=== PATIENT | male | born 1990 | race Caucasian/White ===

== ENCOUNTER 2017-05-12 22:34 | Emergency (ER) | payer BC ==
[~2017-05-12] VITALS: Ht 177.8 cm; Wt 72.6 kg
[2017-05-12 22:34] VITALS: BP 145/78
[2017-05-12] MEDS ORDERED: MORPHINE SULFATE INJ 4 MG/ML DISP.SYRIN ONE (22:48)
[2017-05-12] MEDS ORDERED: ONDANSETRON 4 MG TAB.RAPDIS ONE (22:49)
[2017-05-12] MEDS ORDERED: MORPHINE SULFATE INJ 2 MG/ML DISP.SYRIN IM ONE (23:00)
[2017-05-12] MEDS ORDERED: ONDANSETRON 4 MG TAB.RAPDIS PO ONE (23:00)
[2017-05-12] MEDS ORDERED: TDAP [DIPH/PERTUSSIS/TET] 0.5 ML VIAL IM ONE ×2 (23:30→23:35)
--- NOTE | 2017-05-12 23:52 | NUR ---
Patient discharged to home in stable condition. Written and verbal after care instructions given. Patient verbalizes understanding of instruction. VSS. ambulated with steady gait out of ER with friend
== END 2017-05-12 23:55 | disposition home or self-care (01) ==
LOC: ER 22:39
DX: S61.311A Laceration without foreign body of left index finger with damage to nail, initial encounter (principal); F17.200 Nicotine dependence, unspecified, uncomplicated; W45.8XXA Other foreign body or object entering through skin, initial encounter; Y93.89 Activity, other specified; Y92.89 Other specified places as the place of occurrence of the external cause; Y99.8 Other external cause status
CPT/HCPCS: 90471; 90715; 96372; 99284; A4606; J2270; Q0162; Z7610

== ENCOUNTER 2019-05-24 00:40 | Emergency (ER) | payer BC ==
[~2019-05-24] VITALS: Ht 182.9 cm; Wt 68.0 kg
[2019-05-24] MEDS ORDERED: LORAZEPAM 1 MG TABLET ONE (01:05)
--- NOTE | 2019-05-24 01:09 | NUR ---
Pt aaox4 ambulatory with steady gait. bibself c/o "heart racing w/ arm numbness" Pt states feels like, "panic attack" MD at bedside for eval. RR even and unlabored. VSS. No acute distress noted. VSS.
--- NOTE | 2019-05-24 01:20 | NUR ---
PT STATES HE FEELS BETTER.
[2019-05-24] MEDS ORDERED: LORAZEPAM 1 MG TABLET PO ONE (01:30)
--- NOTE | 2019-05-24 01:43 | NUR ---
Patient discharged to home in stable condition. Written and verbal after care instructions given. Patient verbalizes understanding of instruction and RX. vss. Amublated with steady gait.
[2019-05-24 01:44] VITALS: BP 128/78
== END 2019-05-24 01:44 | disposition home or self-care (01) ==
LOC: ER 00:42
DX: F41.0 Panic disorder [episodic paroxysmal anxiety] (principal); R00.2 Palpitations